=== PATIENT | male | born 1950 | race Caucasian/White ===

== ENCOUNTER 2024-09-28 17:32 | Emergency (ER) | payer BC ==
[~2024-09-28 17:32] MED LIST: Iopamidol-370 76% 500 ML MDV (1 ML CHARGE) ONE
[2024-09-28] MEDS ORDERED: Aspirin Chewable 81 MG TAB ONE (19:27)
[2024-09-28 19:52] LABS: #Basophils 0.09 10x3/uL (0.0-0.2); %Basophils 0.8 % (0.0-1.0); %Eosinophils 3.3 % (0.0-10.0); %Lymphocytes 16.7 % (21.0-51.0); %Monocytes 11.7 % (0.0-10.0); %Neutrophils 67.1 % (42.0-75.0); Hemoglobin 13.4 g/dL (14.0-18.0); Mean Corpuscular HGB CONC 33.5 g/dL (32.0-36.0); Mean Corpuscular Hemoglobin 29.2 pg (27.0-31.0); Mean Corpuscular Volume 87.1 fL (78.0-98.0); Mean Platelet Volume 9.3 fL (7.4-10.4); Platelet Count 143 10x3/uL (130-400); RBC Distribution Width 13.7 % (11.5-14.5); Red Blood Cell (RBC) Count 4.59 mill/uL (4.70-6.10)
[2024-09-28] MEDS ORDERED: Acetaminophen 500 MG TAB ONE (20:03)
[2024-09-28 20:05] LABS: INR-International Normal Ratio 1.1; Prothrombin Time 14.6 sec (12.0-14.7)
[2024-09-28 20:06] LABS: PTT 38.7 sec (22.9-36.1)
[2024-09-28 20:10] LABS: ALT (SGPT) 16 U/L (Less than 45); AST (SGOT) 27 U/L (11-34); Albumin 3.7 g/dL (3.1-4.5); Alkaline Phosphatase 102 U/L (40-110); Anion Gap 20 mmol/L (10-20); BUN (Urea Nitrogen) 14 mg/dL (8.4-25.7); Calc. Creatinine Clearance 0 mL/min (70-130); Calcium 8.9 mg/dL (7.8-10.44); Carbon Dioxide 19 mmol/L (23-31); Chloride 101 mmol/L (98-107); Estimated GFR 92; Globulin 3.7 g/dL (2.4-3.5); Glucose 79 mg/dL (83-110); Protein, Total 7.4 g/dL (5.8-8.1); Sodium 136 mmol/L (136-145)
[2024-09-28 20:13] LABS: Troponin I 0.018 ng/mL (< 0.028)
[2024-09-28 21:45] LABS: Bacteria/HPF None Seen HPF (None Seen); Bilirubin Negative (Negative); Blood, Urine Negative (Negative); CAUTI Indications for Culture Dysuria,urgency,freq; Clarity Clear (Clear); Glucose, Urine (Dipstick) Normal (Negative); Ketone, Urine 20 mg/dL (Negative); Leukocyte 75 Leu/uL (Negative); Nitrite Negative (Negative); Protein, Urine (Dipstick) Negative (Neg-Trace); RBC/HPF 0-3 HPF (0-3); Specific Gravity, Urine 1.021 (1.002-1.036); Squamous Epithelial 0-3 HPF (0-3); Urobilinogen Normal mg/dL (Less than 2)
[2024-09-28 21:47] LABS: Urine Culture Reflex No No
== END 2024-09-29 02:13 | disposition left against medical advice (07) ==
LOC: ERS 17:32
DX: R47.81 Slurred speech (principal); R91.1 Solitary pulmonary nodule; F17.210 Nicotine dependence, cigarettes, uncomplicated
CPT/HCPCS: 70450; 70496; 70498; 71045; 80053; 81001; 83735; 83880; 84484; 85025; 85610; 85730; 93005; Q9967